=== PATIENT | female | born 1995 | race Two or more races ===

== ENCOUNTER 2024-07-08 10:54 | Outpatient (CLI) | payer OTHER | END 2024-07-08 11:06 | disposition home or self-care (01) | LOC: PRENATAL 10:54 → EDBD 10:54 → PRENATAL 11:06 | PROVIDERS: ATTEND Obstetrics & Gynecology Maternal & Fetal Medicine | DX: O35.00X0 Maternal care for (suspected) central nervous system malformation or damage in fetus, unspecified, not applicable or unspecified (principal); O35.3XX0 Maternal care for (suspected) damage to fetus from viral disease in mother, not applicable or unspecified; O44.00 Complete placenta previa NOS or without hemorrhage, unspecified trimester; Z3A.23 23 weeks gestation of pregnancy ==

== ENCOUNTER → 2024-09-09 08:40 | Outpatient (CLI) | payer OTHER | END | disposition home or self-care (01) | LOC: PRENATAL 08:40 | PROVIDERS: ATTEND Obstetrics & Gynecology Maternal & Fetal Medicine | DX: O26.849 Uterine size-date discrepancy, unspecified trimester (principal); O36.8199 Decreased fetal movements, unspecified trimester, other fetus; O28.3 Abnormal ultrasonic finding on antenatal screening of mother; Z3A.33 33 weeks gestation of pregnancy ==

== ENCOUNTER → 2024-09-15 | Emergency (ER) | payer OTHER ==
[~2024-09-15] VITALS: Ht 149.9 cm; Wt 75.3 kg
[~2024-09-15] MED LIST: PRENATAL + DHA1 EAC1
== END | disposition home or self-care (01) ==
LOC: ER 22:07
DX: S39.83XA Other specified injuries of pelvis, initial encounter (principal); V49.88XA Car occupant (driver) (passenger) injured in other specified transport accidents, initial encounter; Y93.89 Activity, other specified; Y92.89 Other specified places as the place of occurrence of the external cause; Y99.8 Other external cause status; Z3A.30 30 weeks gestation of pregnancy

== ENCOUNTER 2024-10-11 02:22 | Inpatient (IN) | payer OTHER ==
[~2024-10-11] VITALS: Ht 149.9 cm; Wt 81.6 kg
[2024-10-11 01:42] VITALS: BP 132/84
[2024-10-11] MEDS ORDERED: PRENATAL TABLE1 EAC1 (02:24)
[2024-10-11] MEDS ORDERED: AMPICILLIN SODIUM 2,000 MG VIAL IV SCH (02:27)
[2024-10-11] MEDS ORDERED: RINGERS SOLUTION,LACTATED 1,000 ML IV SCH (02:30)
[2024-10-11 03:45] LABS: URINE APPEARANCE Clear; URINE BILIRRUBIN Negative (NEGATIVE); URINE BLOOD Small; URINE COLOR Yellow; URINE GLUCOSE Negative (NEGATIVE); URINE KETONE Negative (NEGATIVE); URINE LEUKOCYTE Negative; URINE NITRATE Negative; URINE PROTEIN 30 (NEGATIVE)
[2024-10-11 03:46] LABS: HEMATOCRIT 38.4 % (36.0-45.00); HEMOGLOBIN 12.9 g/dL (12.0-15.00); MEAN CELL VOLUME 94.6 fL (80.00-100.00); MEAN CORPUSCULAR HEMOGLOBIN 31.9 pg (27.00-32.0); MEAN CORPUSCULAR HGB CONC 33.7 g/dl (32.0-36.0); PLATELET COUNT 151 K/uL (150-450); RED BLOOD COUNT 4.06 M/uL (4.00-6.00); RED CELL DISTRIBUTION WIDTH 13.2 % (11.5-14.5)
[2024-10-11 03:51] LABS: URINE BACTERIA 86.8 uL (0.0-1933); URINE RBC 91.9 uL (0.0-20.8); URINE WBC 27.2 uL (0.0-23.2)
[2024-10-11 04:04] LABS: URINE CAST 0.73 uL (0.0-1.40); URINE CRYSTALS MANY /HPF
[2024-10-11 04:25] LABS: INR < 0.93; PARTIAL THROMBOPLASTIN TIME 26.8 SECONDS (22.0-34.0); PROTHROMBIN TIME 9.6 SECONDS (9.0-11.5)
[2024-10-11 04:26] LABS: ALBUMIN 2.5 gm/dL (3.4-5.0); BILIRUBIN TOTAL 0.18 mg/dL (0.3-1.2); CALCIUM 8.9 mg/dL (8.5-10.1); CREATININE SERUM 0.46 mg/dL (0.55-1.02); GFR 159.5; GLOBULINA 3.3 G/DL (2.4-3.5); POTASSIUM 3.77 mEq/L (3.5-5.1); TOTAL PROTEIN 5.8 gm/dL (6.4-8.2)
[2024-10-11 04:48] VITALS: BP 136/92
[2024-10-11] MEDS ORDERED: CHLORHEXIDINE GLUCONATE 120 ML BOTTLE TOP ONE ×2 (07:19→08:15)
[2024-10-11] MEDS ORDERED: OXYTOCIN 20 UNITS/1000ML RL PIGGYBAG IV ONE (07:19)
[2024-10-11] MEDS ORDERED: ERYTHROMYCIN BASE OPHT 1GM EACH TUBE OP ONE (07:19)
[2024-10-11] MEDS ORDERED: LIDOCAINE HCL 1% 10ML VIAL ONE (07:19)
[2024-10-11] MEDS ORDERED: AMPICILLIN SODIUM 2,000 MG VIAL ONE (07:24)
[2024-10-11] MEDS ORDERED: IBUprofen 400 MG TABLET PO PRN (08:15)
[2024-10-11] MEDS ORDERED: OXYTOCIN 1,000 ML IV SCH (08:15)
[2024-10-11 09:44] VITALS: BP 133/76
[2024-10-11 16:00] VITALS: BP 112/69
[2024-10-12 01:00] VITALS: BP 106/67
[2024-10-12 08:47] VITALS: BP 119/81; O2SAT 99
[2024-10-12 13:44] VITALS: BP 125/81
[2024-10-12 16:00] VITALS: BP 126/80
[2024-10-13 00:29] VITALS: BP 106/73
[2024-10-13 08:32] VITALS: BP 134/94; O2SAT 100
[2024-10-13] MEDS ORDERED: NAPR500T14 PO (09:05)
== END 2024-10-13 10:14 | disposition home or self-care (01) | DRG 768 ==
LOC: LDR → OB/GYN 02:22
PROVIDERS: ADMIT Obstetrics & Gynecology; ATTEND Obstetrics & Gynecology
PROC: 10E0XZZ Delivery of Products of Conception, External Approach (ICD-10-PCS; principal; 2024-10-11)
PROC: 0DQR0ZZ Repair Anal Sphincter, Open Approach (ICD-10-PCS; 2024-10-11)
PROC: 4A1HXCZ Monitoring of Products of Conception, Cardiac Rate, External Approach (ICD-10-PCS; 2024-10-11)
DX: O70.21 Third degree perineal laceration during delivery, IIIa (principal); Z37.0 Single live birth; O60.14X0 Preterm labor third trimester with preterm delivery third trimester, not applicable or unspecified; Z3A.36 36 weeks gestation of pregnancy